=== PATIENT | male | born 1980 | race Two or more races ===

== ENCOUNTER 2021-02-21 16:13 | Emergency (ER) | payer SELFPAY ==
[~2021-02-21] VITALS: Ht 177.8 cm; Wt 90.7 kg
[2021-02-21 16:47] VITALS: BP 116/72
[2021-02-21] MEDS ORDERED: ONDANSETRON HCL 4 MG/2 ML VIAL ONE (16:57)
[2021-02-21] MEDS ORDERED: ONDANSETRON HCL 4 MG/2 ML VIAL IV ONE (17:00)
[2021-02-21 17:10] LABS: Basophils # (auto) 0 10 ^3/uL (0-0.2); Basophils % (auto) 0.2 % (0.0-2.0); Eosinophils # (auto) 0 10 ^3/uL (0-0.8); Eosinophils % (auto) 0.2 % (0.0-7.0); Hematocrit 43.9 % (41.0-53.0); Hemoglobin 15.7 g/dL (13.5-17.5); Lymphocytes % (auto) 5.7 % (10.0-50.0); Mean Corpuscular Hemoglobin 32.4 pg (28.0-32.0); Mean Corpuscular Hgb Conc. 35.9 g/dL (32.0-36.0); Mean Corpuscular Volume 90.4 fL (80.0-100.0); Monocytes # (auto) 1.1 10 ^3/uL (0-1.3); Monocytes % (auto) 6.1 % (0.0-12.0); Neutrophils % (auto) 87.8 % (37.0-80.0); Red Blood Cells 4.85 10^6/uL (4.5-5.90); Red Cell Distribution Width 12.5 % (11.8-14.3); White Blood Cell 18.2 10^3/uL (4.4-10.8)
[2021-02-21 17:28] LABS: Anion Gap 7 (5-15); Blood Urea Nitrogen 19 mg/dL (7-18); Carbon Dioxide 24 mmol/L (21-32); Chloride 108 mmol/L (98-107); Glucose 180 mg/dL (74-106); Potassium 4.3 mmol/L (3.5-5.1); Sodium 139 mmol/L (136-145)
[2021-02-21 17:30] LABS: Alanine Aminotransferase 53 U/L (16-61); Aspartate Aminotransferase 23 U/L (15-37); Blood Alcohol < 3.0 mg/dL (0-5); GFR African American 91 mL/min; GFR Non-African American 75 mL/min
[2021-02-21 17:33] LABS: Alkaline Phosphatase 90 U/L (45-117); Bilirubin, Total 0.3 mg/dL (0.2-1.0); Total Protein 7.4 g/dL (6.4-8.2)
[2021-02-21 18:40] LABS: Alcohol, Urine < 3.0 mg/dL (0-10); Amphetamine Screen, Urine NEGATIVE (NEGATIVE); Barbiturate Scree,Urine NEGATIVE (NEGATIVE); Benzodiazephine Screen, Urine NEGATIVE (NEGATIVE); Cannabinoid Screen, Urine NEGATIVE (NEGATIVE); Cocaine Screen, Urine NEGATIVE (NEGATIVE); Opiate Scree,Urine NEGATIVE (NEGATIVE); Phencyclidine Screen, Urine NEGATIVE (NEGATIVE)
[2021-02-21 19:01] LABS: BUN/Creatinine Ratio 16.4
== END 2021-02-21 19:16 | disposition home or self-care (01) ==
LOC: EDBD 16:13 → ER 16:13
DX: T50.901A Poisoning by unspecified drugs, medicaments and biological substances, accidental (unintentional), initial encounter (principal); R41.82 Altered mental status, unspecified; Y92.89 Other specified places as the place of occurrence of the external cause
CPT/HCPCS: 36415; 70450; 71045; 80053; 80307; 80320; 85025; 93005; 96374; 99285; J2405